=== PATIENT | female | born 1960 | race Caucasian/White ===

== ENCOUNTER 2022-03-16 09:55 | Outpatient (CLI) | payer OTHER, SELFPAY ==
--- NOTE | 2022-03-16 10:15 | CRLHL7_ITS ---
For Patients: As a result of the Century Cures Act, medical imaging exams and procedure reports are released immediately into your electronic medical record. You may view this report before your referring provider. If you have questions, please contact your health care provider. BILATERAL MAMMOGRAM WITH COMPUTER-AIDED DETECTION TECHNIQUE: CC and MLO views were obtained. These mammographic images have been obtained using full-field digital technique. These mammographic images were interpreted with the benefit of computer-aided detection. COMPARISON FILM: 02/12/20, 02/20/20, 02/18/18. FINDINGS: There are scattered areas of fibroglandular density IMPRESSION: There is no radiographic evidence for malignancy. ASSESSMENT: BI-RADS Category 1: Negative RECOMMENDATION: Routine screening mammogram in 1 year. A lay language report of this examination will be provided to the patient. Tad Mcfarland M.D. Diagnostic Radiologist [email or web address] FRANCK/Dictated by: Tad Mcfarland MD @ 03/16/2022 11:04:00 AM (Electronically Signed)
== END 2022-03-16 09:56 | disposition home or self-care (01) ==
LOC: MAMMO 09:57
PROVIDERS: Visit Provider Nurse Practitioner Family
DX: Z12.31 Encounter for screening mammogram for malignant neoplasm of breast (principal)
CPT/HCPCS: 77067

== ENCOUNTER 2022-12-14 09:32 | Outpatient (CLI) | payer OTHER, SELFPAY ==
[2022-12-14 14:07] LABS: Albumin* 4.1 g/dL (3.3-5.0); Chloride* 103 mmol/L (96-114); Sodium* 139 mmol/L (135-149)
[2022-12-14 14:09] LABS: Carbon Dioxide* 29 mmol/L (20-32); Cholesterol* 176 mg/dL (90-199); Creatinine* 0.7 mg/dL (0.5-1.5); Estimated Glomerular Filt Rate 99 ml/min
[2022-12-14 14:10] LABS: Alanine Aminotransferase* 27 U/L (4-35); Alkaline Phosphatase* 71 U/L (40-150); Aspartate Amino Transferase* 23 U/L (12-35); Bilirubin Total* 0.7 mg/dL (0.1-1.5); Blood Urea Nitrogen* 12 mg/dL (7-30); Calcium* 9.4 mg/dL (8.4-10.6); Glucose* 106 mg/dL (60-115); Total Protein* 6.7 g/dL (6.0-8.3); Triglycerides* 141 mg/dL (40-149)
[2022-12-14 14:11] LABS: HDL Cholesterol* 72 mg/dL (>=50); LDL Cholesterol Calculated 76 mg/dL (<100)
== END 2022-12-14 09:33 | disposition home or self-care (01) ==
PROVIDERS: PCP Nurse Practitioner Family; Visit Provider Nurse Practitioner Family
DX: I10 Essential (primary) hypertension (principal); E55.9 Vitamin D deficiency, unspecified; Z13.6 Encounter for screening for cardiovascular disorders; R73.03 Prediabetes; R73.01 Impaired fasting glucose
CPT/HCPCS: 80053; 80061

== ENCOUNTER 2023-12-20 09:10 | Outpatient (CLI) | payer OTHER, SELFPAY ==
--- NOTE | 2023-12-20 10:21 | W.ANESCHARGE ---
Anesthesia Charges Start Date/Time Anesthesia Start Date: 12/20/23 Anesthesia Start Time: 10:00 Stop Date/Time Anesthesia Stop Date: 12/20/23 Anesthesia Stop Time: 10:40
--- NOTE | 2023-12-20 10:40 | W.ANESCHARGE ---
Anesthesia Charges Start Date/Time Anesthesia Start Date: 12/20/23 Anesthesia Start Time: 10:00 Stop Date/Time Anesthesia Stop Date: 12/20/23 Anesthesia Stop Time: 10:40
== END 2023-12-20 09:11 | disposition home or self-care (01) ==
LOC: OP CLINIC 09:10
PROVIDERS: PCP Nurse Practitioner Family; Visit Provider Surgery
DX: K63.5 Polyp of colon (principal); K57.30 Diverticulosis of large intestine without perforation or abscess without bleeding; Z86.010 Personal history of colon polyps
CPT/HCPCS: 45385; 811; 88305; J2704

== ENCOUNTER 2023-12-28 08:29 | Outpatient (CLI) | payer OTHER, SELFPAY | END 2023-12-28 08:30 | disposition home or self-care (01) | PROVIDERS: PCP Nurse Practitioner Family; Visit Provider Nurse Practitioner Family | DX: Z00.00 Encounter for general adult medical examination without abnormal findings (principal); I10 Essential (primary) hypertension; R73.03 Prediabetes; E55.9 Vitamin D deficiency, unspecified; R73.01 Impaired fasting glucose; R00.2 Palpitations; M25.50 Pain in unspecified joint; Z13.0 Encounter for screening for diseases of the blood and blood-forming organs and certain disorders involving the immune mechanism | CPT/HCPCS: 80053; 80061; 84443; 85025; 85651; 86039; 86140; 86200; 86431 ==

== ENCOUNTER 2024-01-22 16:26 | Emergency (ER) | payer OTHER, SELFPAY ==
[2024-01-22 16:29] VITALS: BP 161/84; PULSE 85; RESP 18; TEMP 36.4; O2SAT 98; BMI 29.2
--- NOTE | 2024-01-22 16:40 | CRLHL7_ITS ---
For Patients: As a result of the Century Cures Act, medical imaging exams and procedure reports are released immediately into your electronic medical record. You may view this report before your referring provider. If you have questions, please contact your health care provider. Indication: Fall, back pain. Technique: Two view(s) of the lumbar spine. Comparison: None available. Findings: Five lumbar type vertebral bodies. Lumbar levoscoliosis with Calvert angle measuring 31 degrees from T12-L4. There is straightening of the lumbar lordosis with focal kyphosis centered at the L1 level. L2-L5 instrumented fusion with bilateral pedicle screws and posterior rods. Interbody grafts are also seen at L2-3 and L4-5. Hardware is intact and without evidence of complication. Age-indeterminate superior endplate compression deformity at L1 with approximately 30 percent loss of vertebral body height. Remaining vertebral body heights are maintained. Sacroiliac joints are unremarkable. Nonobstructed bowel-gas pattern. Impression : 1. L2-L5 instrumented fusion without evidence of hardware complication. 2. Age-indeterminate superior endplate compression deformity at L1 with 30 percent loss of vertebral body height. 3. Lumbar levoscoliosis. Dictated by Connie Onofre MD @ 01/22/2024 5:20:46 PM (Electronically Signed)
--- NOTE | 2024-01-22 16:42 | ED_ITS ---
HPI - General Adult General Date Seen: 01/22/24 Chief complaint: Fall/Minor Trauma Stated complaint: Fall, tailbone pain Time Seen by Provider: 01/22/24 16:37 Source: patient and RN notes reviewed Mode of arrival: ambulatory Limitations: no limitations History of Present Illness HPI narrative: Patient is a 63-year-old woman who says she fell backward a little bit ago landing on her rear-end on a concrete and tile floor. She initially described herself as having tailbone pain, but it is really more mid lumbar pain. She says she has had a fusion in the past. Denies other injuries or complaints. No radiating pain, numbness weakness. Took ibuprofen at home. Related Data Home Medications ?Medication ?Instructions ?Recorded ?Confirmed fexofenadine 60 mg tablet (Elli 60 mg PO BID 10/19/22 01/22/24 Allergy) cholecalciferol (vitamin D3) 25 25 mcg PO QDAY 12/28/23 01/22/24 mcg (1,000 unit) capsule Previous Rx's ?Medication ?Instructions ?Recorded albuterol sulfate 90 mcg/actuation 2 inh inhalation Q4-6H 30 days 12/14/22 aerosol inhaler (Ventolin HFA) #8.5 grams fexofenadine-pseudoephedrine ER 1 tab PO QAM 90 days #90 tabs 02/19/23 180 mg-240 mg tablet,ext.release 24 hr (Elli-D 24 Hour) fluticasone 500 mcg-salmeterol 50 1 inh inhalation BID 90 days #180 09/14/23 mcg/dose blistr powdr for ea inhalation peg 3350-electrolytes 236 240 ml PO Q10M #4,000 mL 11/18/23 gram-22.74 gram-6.74 gram-5.86 gram solution (Golytely) losartan 100 mg tablet (Cozaar) 100 mg PO QDAY 90 days #90 tabs 12/28/23 montelukast 10 mg tablet 10 mg PO ONCE 90 days #90 tabs 12/28/23 prednisone 20 mg tablet 20 mg PO BID 5 days #10 tabs 12/28/23 calcitonin (salmon) 200 1 spray intranasal (ALT) DAILY 01/22/24 unit/actuation nasal spray #3.7 mL Allergies Allergy/AdvReac Type Severity Reaction Status Date / Time mold Allergy Verified 01/22/24 16:33 Sulfa (Sulfonamide Allergy Verified 01/22/24 16:33 Antibiotics) PFSH [facility] Medical History (Updated 01/22/24 @ 17:34 by Ayah Araujo MD) Knee pain, right ?M25.561 - Pain in right knee (ICD-10) Insomnia, unspecified ?G47.00 - Insomnia, unspecified (ICD-10) History of nuclear stress test (01/2020) ?Z92.89 - Personal history of other medical treatment (ICD-10) Gastroesophageal reflux disease ?K21.9 - Gastro-esophageal reflux disease without esophagitis (ICD-10) Surgical History (Updated 12/14/22 @ 12:43 by Gail Melara APRN, [employer] SALES REPRESENTATIVE) History of ear surgery ?Z98.890 - Other specified postprocedural states (ICD-10) Tubular adenoma of colon ?D12.6 - Benign neoplasm of colon, unspecified (ICD-10) Status post tonsillectomy ?Z90.89 - Acquired absence of other organs (ICD-10) Status post delivery ?Z98.891 - History of uterine scar from previous surgery (ICD-10) Status post appendectomy ?Z90.49 - Acquired absence of other specified parts of digestive tract (ICD- 10) History of spinal surgery (2016) ?Z98.890 - Other specified postprocedural states (ICD-10) History of sinus surgery (2012) ?Z98.890 - Other specified postprocedural states (ICD-10) History of endometrial ablation ?Z98.890 - Other specified postprocedural states (ICD-10) Family History (Updated 12/13/22 @ 11:54 by Cheri Corley ~ PSR) Mother Diabetes Lung cancer Father Coronary artery disease Brother Coronary artery disease High blood pressure ALS (amyotrophic lateral sclerosis) Aunt Lung cancer Sister Rheumatoid arteritis Dementia Other Breast cancer Social History (Updated 12/28/23 @ 08:14 by Margaret Cordoba ~ VICE PRESIDENT OF SOFTWARE DEVELOPMENT, [employer]ELOP[employer]) Narrative: , 1 daughter, Application Support Administrator, lives in [place] Non -smoker quit 1988, 15 pack years Social drinker 3-5/ week Exercises regularly 5x/week :walking What is your current living situation?: I presently have a place to live In the past 12 months, utilities in danger of being shut off: no In past 12 months, lack of transportation kept you from medical appts, meetings, work, or getting things needed for daily living: no In the past 12 mos, have been you worried that your food would run out before you had money to buy more?: never true In the past 12 mos, the food you bought just didn't last and you didn't have money to buy more?: never true Smoking Status: Never smoker How often do you have a drink containing alcohol: 4 or more times a week How many standard drinks containing alcohol do you have on a typical day: 3 or 4 How often do you have six or more drinks on one occasion: Less than monthly AUDIT-C Alcohol total score: 6 Non-prescribed substance use: denies use How often does anyone, including family, friends and others, physically hurt you : never How often does anyone, including family, friends and others, insult or talk down to you: never How often does anyone, including family, friends and others, threaten you with harm: never How often does anyone, including family, friends and others, scream or curse at you: never Little interest or pleasure in doing things: not at all Feeling down, depressed, or hopeless: not at all Exam Narrative: Exam Narrative: Vital signs reviewed In General, alert, nontoxic woman. She moves in the bed with minimal difficulty. Back: Well healed midline incision over the lumbar spine. Diffuse tenderness along the lumbar spine without obvious bruising deformity or other sign of trauma. Coccyx is notably nontender to palpation. Neurologic: Strength is 5 of 5 in bilateral lower extremities. Sensation intact to light touch. Skin: Warm dry and intact. Const: Vital Signs, click to edit/add: Vital Signs - 24 hr 01/22/24 16:29 Temperature 97.6 F Pulse Rate [Right Pulse Oximeter] 85 Respiratory Rate 18 Blood Pressure [Ri ght Upper Arm] 161/84 H Pulse Oximetry 98 Oxygen Delivery Me thod Room Air Documenting provider has reviewed patient's vital signs: yes Course Course ED Course: Given her age and history of fusion I elected to do x-rays of the lumbar spine. By my review the show a compression fracture of L1, age-indeterminate according to Radiology. Hardware looks intact. The last time we have x-rays for her was back in 2016 at which time she did not have a compression fracture. I think it is prudent to treat this as an acute fracture at this time, I have prescribed calcitonin, gave her oxycodone #10 out of Instymeds and I have asked her to take Tylenol 1000 mg 3 times daily as her baseline pain management. Reviewed warnings related to narcotics. Primary care follow-up in the next 1-2 weeks for recheck. Return for severe uncontrolled pain or other new problems. Vital Signs Vital signs: Initial Vital Signs Temperature 97.6 F 01/22/24 16:29 Temperature Source Temporal Artery Scan 01/22/24 16:29 Pulse Rate 85 01/22/24 16:29 Pulse Rhythm Regular 01/22/24 16:29 Respiratory Rate 18 01/22/24 16:29 Blood Pressure 161/84 H 01/22/24 16:29 Blood Pressure Mean 109 H 01/22/24 16:29 Blood Pressure Position Sitting 01/22/24 16:29 Pulse Oximetry 98 01/22/24 16:29 Oxygen Delivery Method Room Air 01/22/24 16:29 Vital Signs Temperature 97.6 F 01/22/24 16:29 Pulse Rate 85 01/22/24 16:29 Respiratory Rate 18 01/22/24 16:29 Blood Pressure 161/84 H 01/22/24 16:29 Pulse Oximetry 98 01/22/24 16:29 Oxygen Delivery Method Room Air 01/22/24 16:29 Temperature 97.6 F 01/22/24 16:29 Pulse Rate 85 01/22/24 16:29 Respiratory Rate 18 01/22/24 16:29 Blood Pressure 161/84 H 01/22/24 16:29 Pulse Oximetry 98 01/22/24 16:29 Oxygen Delivery Method Room Air 01/22/24 16:29 Discharge Plan Discharge Clinical Impression: Closed compression fracture of body of L1 vertebra Patient Disposition: Home, Self-Care Condition: Stable Instructions: Vertebral Compression Fracture (ED) Additional Instructions: Tylenol 1000 mg 3 times daily. Oxycodone if needed for more severe pain. Calcitonin as prescribed. Primary care follow-up in the next 1-2 weeks for recheck. For severe uncontrolled pain or other new symptoms return to the emergency department. Prescriptions: New calcitonin (salmon) 200 unit/actuation spray,non-aerosol 1 spray intranasal (ALT) DAILY Qty: 3.7 2RF No Action fexofenadine [Elli Allergy] 60 mg tablet 60 mg PO BID albuterol sulfate [Ventolin HFA] 90 mcg/actuation HFA aerosol inhaler 2 inh inhalation Q4-6H 30 Days Qty: 8.5 6RF cholecalciferol (vitamin D3) 25 mcg (1,000 unit) capsule 25 mcg PO QDAY losartan [Cozaar] 100 mg tablet 100 mg PO QDAY 90 Days Qty: 90 3RF montelukast 10 mg tablet 10 mg PO ONCE 90 Days Qty: 90 3RF prednisone 20 mg tablet 20 mg PO BID 5 Days Qty: 10 3RF fexofenadine-pseudoephedrine [Elli-D 24 Hour] 180-240 mg tablet extended release 24 hr 1 tab PO QAM 90 Days Qty: 90 1RF fluticasone propion-salmeterol 500-50 mcg/dose blister with device 1 inh inhalation BID 90 Days Qty: 180 3RF peg 3350-electrolytes [Golytely] 236-22.74-6.74 -5.86 gram recon soln 240 ml PO Q10M Qty: 4000 0RF Rx Instructions: until fecal effluent is clear Follow Up/Referrals: Gail Melara, DRILLER HELPER, [employer] SALES REPRESENTATIVE [Primary Care Provider] - Stand Alone Forms: [facility] Info Instructions
== END 2024-01-22 17:45 | disposition home or self-care (01) ==
PROVIDERS: Emergency Provider Emergency Medicine; PCP Nurse Practitioner Family
DX: S32.010A Wedge compression fracture of first lumbar vertebra, initial encounter for closed fracture (principal); W18.30XA Fall on same level, unspecified, initial encounter
CPT/HCPCS: 72100; 99283; 99284

== ENCOUNTER 2024-03-06 07:05 | Outpatient (CLI) | payer OTHER, SELFPAY ==
--- NOTE | 2024-03-06 07:15 | CRLHL7_ITS ---
For Patients: As a result of the Century Cures Act, medical imaging exams and procedure reports are released immediately into your electronic medical record. You may view this report before your referring provider. If you have questions, please contact your health care provider. Indication: L1 fracture. Pain from fall status post surgery. Technique: Multiplanar, multisequence, MRI of the lumbar spine, obtained without contrast. Comparison: Lumbar spine x-ray 01/22/2024 Findings: Lumbar levoconvex curvature, apex at L2, with preserved lumbar lordosis and mild focal kyphosis at the thoracolumbar junction. Acute-appearing L1 superior endplate compression fracture with mild-moderate anterior wedging, and approximately 2-3 mm cortical retropulsion. Posterior transpedicular screw and isha fusion changes at L2-L5, with interbody spacers, and scattered bony ankylosis. The conus medullaris terminates at L1-L2. No suspicious findings identified in the paraspinal soft tissues. The included SI joints are unremarkable. T12-L1: Mild diffuse disc bulge, mild L1 cortical retropulsion, mild facet arthropathy. No neural foraminal stenosis. Mild right eccentric spinal canal narrowing. L1-L2: Mild diffuse disc bulge, mild facet arthropathy. No neural foraminal stenosis. Mild right eccentric spinal canal narrowing. L2-L3: Postop changes, diffuse right eccentric disc-osteophyte complex, facet arthropathy. No left, moderate right neural foraminal stenosis. Mild-moderate spinal canal narrowing. L3-L4: Postop changes, mild right eccentric disc-osteophyte complex, facet arthropathy. No left, moderate right neural foraminal stenosis. No spinal canal stenosis. L4-L5: Postop changes, mild diffuse disc-osteophyte complex, facet arthropathy. No left, mild-moderate right neural foraminal narrowing with disc-osteophyte encroachment upon the exiting right L4 nerve root. No spinal canal stenosis. L5-S1: Disc bulge with left eccentric disc-osteophyte complex, facet arthropathy. 6 mm cystic focus anterior to the right facet joint, encroaching upon the exiting right L5 nerve root within the neural foramen, unclear if synovial or perineural cyst. Mild-moderate right, moderately severe left neural foraminal stenosis with potential left L5 nerve root impingement. No spinal canal stenosis. Impression: 1. Acute-appearing L1 compression fracture with [id number] anterior wedging, and proximally 2-3 mm cortical retropulsion. 2. Remote spinal fusion changes from L2-L5, with interbody spacers and scattered bony ankylosis. 3. At L2-L3, moderate right neural foraminal stenosis and mild-moderate spinal canal narrowing. 4. At L3-L4, moderate right neural foraminal stenosis. 5. At L4-L5, mild-moderate right neural foraminal narrowing with disc-osteophyte encroachment upon the exiting right L4 nerve root. 6. At L5-S1, moderately severe left neural foraminal stenosis with potential left L5 nerve root impingement, and mild-moderate right neural foraminal narrowing. A small cystic focus anterior to the right facet joint, could represent a synovial cyst mildly encroaching upon the exiting right L5 nerve root, versus an incidental perineural cyst. Dictated by Lori Terry MD @ 03/07/2024 9:57:39 AM (Electronically Signed)
== END 2024-03-06 07:06 | disposition home or self-care (01) ==
LOC: MRI 07:07
PROVIDERS: PCP Nurse Practitioner Family; Visit Provider Physician Assistant
DX: S32.018A Other fracture of first lumbar vertebra, initial encounter for closed fracture (principal); M48.061 Spinal stenosis, lumbar region without neurogenic claudication; M48.07 Spinal stenosis, lumbosacral region
CPT/HCPCS: 72148

== ENCOUNTER 2024-03-23 13:11 | Outpatient (CLI) | payer OTHER, SELFPAY ==
--- NOTE | 2024-03-23 13:30 | CRLHL7_ITS ---
For Patients: As a result of the Century Cures Act, medical imaging exams and procedure reports are released immediately into your electronic medical record. You may view this report before your referring provider. If you have questions, please contact your health care provider. DXA BONE MINERAL DENSITY STUDY Reason for exam: Compression fracture L1 and L2. Current height (in): 62. Weight (lb): 165. Menopause age: 52. Ethnicity: White. 1. Have you had a previous hip or vertebral fracture? No. 2. Have you had any fractures during your adult life which did not result from significant trauma (e.g., auto accident)? No. 3. Did either of your parents have a hip fracture? No. 4. Do you smoke? No. 5. Have you ever taken Glucocorticoids? No. 6. Do you have rheumatoid arthritis? No. 7. Do you have secondary osteoporosis? No. 8. Do you drink 3 or more alcoholic drinks per day? Yes. 9. Are you being treated for osteoporosis? No. 10. Have you ever taken any of the following medications: Actonel, Evista, Fosamax, Miacalcin, Reclast, Boniva, Forteo, HRT (i.e., estrogen/hormone therapy), Protelos, Prolia, Vitamin D, Calcium, other ??? please specify. ANSWER: Yes, vitamin D. 11. Do you have any of the following medical conditions: Anorexia or bulimia, asthma or emphysema, end stage renal disease, hyperparathyroidism, any seizure disorders, cancer, inflammatory bowel diseases, hysterectomy, other ??? please specify. ANSWER: Yes, asthma or emphysema. 12. What was your maximum height (inches)? 63.5. 13. Do you perform weight bearing exercise regularly? No. 14. Do you regularly consume dairy products? Yes. 15. Do you drink caffeinated beverages? Yes. 16. At what age did your period start? 16. 17. Are you premenopausal? No. 18. How many full-term pregnancies have you had? 2. 19. Have you ever missed your period for more than 6 months in a row (not including or menopause)? No. TECHNIQUE: Bone mineral density study was performed using the [employer]. FINDINGS: The results of the study expressed as bone mineral density (BMD) are as follows: Neck Left: BMD: 0.699 g/cm2. T-score: -1.4. Z-score: 0.0 Right: BMD: 0.695 g/cm2. T-score: -1.4. Z-score: 0.0 Total Left: BMD: 0.933 g/cm2. T-score: -0.1. Z-score: 1.0 Right: BMD: 0.885 g/cm2. T-score: -0.5. Z-score: 0.6 Radius Left 33%: BMD: 0.668 g/cm2. T-score: -0.4. Z-score: 1.0 IMPRESSION: Osteopenia. *Comparison exams done prior to 01/2020 were performed on different unit, Evocha. FRAX 10-year Fracture Risk Major Osteoporotic Fracture: 9.4% Hip Fracture: 1.0% Reported Risk Factors: [place] () Neck BMD=0.695, BMI=30.2, alcohol use. SCOOTER MONROE M.D. Transcribed: 6:16 p.m. [email or web address] pierre/Dictated by: Scooter Monroe MD @ 03/27/2024 7:55:00 AM (Electronically Signed)
== END 2024-03-23 13:12 | disposition home or self-care (01) ==
PROVIDERS: PCP Nurse Practitioner Family; Visit Provider Nurse Practitioner Family
DX: S32.010A Wedge compression fracture of first lumbar vertebra, initial encounter for closed fracture (principal); M85.89 Other specified disorders of bone density and structure, multiple sites
CPT/HCPCS: 77080

== ENCOUNTER 2024-10-24 10:30 | Outpatient (RCR) | payer OTHER, SELFPAY | END 2025-02-21 23:59 | disposition home or self-care (01) | PROVIDERS: PCP Nurse Practitioner Family; Visit Provider Physician Assistant | DX: S32.029A Unspecified fracture of second lumbar vertebra, initial encounter for closed fracture (principal); Z51.89 Encounter for other specified aftercare | CPT/HCPCS: 97110; 97140; 97161 ==

== ENCOUNTER 2024-12-06 15:11 | Outpatient (CLI) | payer OTHER, SELFPAY ==
--- NOTE | 2024-12-06 15:30 | CRLHL7_ITS ---
For Patients: As a result of the Century Cures Act, medical imaging exams and procedure reports are released immediately into your electronic medical record. You may view this report before your referring provider. If you have questions, please contact your health care provider. Indication: Low back pain Technique: Multiplanar, multisequence, MRI of the lumbar spine, obtained without contrast. Comparison: MRI lumbar spine 03/06/2024 Findings: Levoconvex curvature, apex at L1-2. Preserved lumbar lordosis, with mild focal kyphosis at T12-L1. Moderate chronic anterior wedge compression deformity of L1. Posterior transpedicular screw and isha fusion changes from L2-L5 with interbody spacers. No acute osseous abnormality. No suspicious bone marrow lesion. Conus medullaris terminates at approximately L1-L2. No concerning findings in the paraspinous soft tissues. Included SI joints are unremarkable. T11-T12: No neural foraminal or spinal canal stenosis. T12-L1: Minimal disc bulge, mild L1 cortical retropulsion, mild left asymmetric facet arthropathy. No neural foraminal stenosis. Mild spinal canal narrowing. L1-L2: Mild disc bulge, mild facet arthropathy. No neural foraminal stenosis. Mild spinal canal narrowing. L2-L3: Postop changes, diffuse disc-osteophyte complex, facet arthropathy. No left, mild right neural foraminal narrowing. Mild-moderate spinal canal narrowing. L3-L4: Postop changes, mild disc-osteophyte complex, facet arthropathy. No left, moderate right neural foraminal stenosis. No spinal canal stenosis. L4-L5: Postop changes, left eccentric disc-osteophyte complex, facet arthropathy. Mild left, [id number] right neural foraminal narrowing. No spinal canal stenosis. L5-S1: Mild disc bulge, left lateral disc-osteophyte complex, mild left and moderately advanced right facet arthropathy. Mild-moderate right, moderately severe left neural foraminal stenosis. No spinal canal stenosis. Impression: 1. Interval maturation of the moderate L1 compression fracture, now chronic in appearance. 2. Stable postsurgical changes of L2-L5 instrumented spinal fusion. 3. Multilevel spondylosis and levoconvex curvature, not significantly progressive relative to 03/06/2024. 4. At L2-L3, similar mild-moderate spinal canal narrowing. 5. At L3-L4, moderate right neural foraminal stenosis, stable. 6. At L4-L5, mild-moderate right neural foraminal narrowing, stable. 7. At L5-S1, moderately severe left neural foraminal stenosis with potential left L5 nerve root impingement, and mild-moderate right neural foraminal narrowing, stable Dictated by Lori Terry MD @ 12/07/2024 9:16:38 AM (Electronically Signed)
== END 2024-12-06 15:12 | disposition home or self-care (01) ==
LOC: MRI 15:12
PROVIDERS: PCP Nurse Practitioner Family; Visit Provider Physician Assistant
DX: M54.50 Low back pain, unspecified (principal); M51.26 Other intervertebral disc displacement, lumbar region; M51.27 Other intervertebral disc displacement, lumbosacral region; M48.07 Spinal stenosis, lumbosacral region; S32.019A Unspecified fracture of first lumbar vertebra, initial encounter for closed fracture; Z98.1 Arthrodesis status
CPT/HCPCS: 72148

== ENCOUNTER 2025-01-05 08:18 | Outpatient (CLI) | payer OTHER, BC, SELFPAY | END 2025-01-05 08:19 | disposition home or self-care (01) | PROVIDERS: PCP Nurse Practitioner Family; Visit Provider Family Medicine | DX: M54.16 Radiculopathy, lumbar region (principal); M51.369 Other intervertebral disc degeneration, lumbar region without mention of lumbar back pain or lower extremity pain | CPT/HCPCS: 64483; J1100; Q9966 ==

== ENCOUNTER 2025-03-23 08:29 | Outpatient (CLI) | payer BC, SELFPAY | END 2025-03-23 08:30 | disposition home or self-care (01) | PROVIDERS: PCP Nurse Practitioner Family; Visit Provider Nurse Practitioner Family | DX: I10 Essential (primary) hypertension (principal); R73.03 Prediabetes; M85.80 Other specified disorders of bone density and structure, unspecified site; Z13.0 Encounter for screening for diseases of the blood and blood-forming organs and certain disorders involving the immune mechanism | CPT/HCPCS: 80053; 80061; 85025 ==

== ENCOUNTER 2025-07-24 13:27 | Outpatient (CLI) | payer BC, SELFPAY ==
--- NOTE | 2025-07-24 13:40 | CRLHL7_ITS ---
For Patients: As a result of the Century Cures Act, medical imaging exams and procedure reports are released immediately into your electronic medical record. You may view this report before your referring provider. If you have questions, please contact your health care provider. INDICATION: BILATERAL SCREENING MAMMOGRAM, ASYMPTOMATIC 64 Y/O FEMALE COMPARISON: 03/16/2022, 02/20/2020, 02/12/2020 TECHNIQUE: Digital mammogram in CC and MLO projections including computer-aided detection (CAD) and tomosynthesis. BREAST COMPOSITION: There are scattered areas of fibroglandular density. FINDINGS: No suspicious findings. ASSESSMENT: BI-RADS 1 Negative RECOMMENDATION: Annual screening mammogram. A lay language report of this examination will be provided to the patient. Dictated by: Tad Mcfarland MD @ 07/25/2025 11:50:16 (Electronically Signed)
== END 2025-07-24 13:28 | disposition home or self-care (01) ==
LOC: MAMMO 13:27
PROVIDERS: PCP Nurse Practitioner Family; Visit Provider Nurse Practitioner Family
DX: Z12.31 Encounter for screening mammogram for malignant neoplasm of breast (principal)
CPT/HCPCS: 77063; 77067